=== PATIENT | female | born 1980 | race Caucasian/White ===

== ENCOUNTER 2016-12-05 09:22 | Emergency (ER) | payer SELFPAY ==
[2016-12-05] MEDS ORDERED: DEXAMETHASONE 4 MG TABLET PO ONE (10:44)
[2016-12-05] MEDS ORDERED: IPRATROPIUM/ALBUTEROL 0.5-2.5 MG/3 ML AMPUL NEB ONE (10:44)
[2016-12-05] MEDS ORDERED: IBUPROFEN 800 MG TABLET PO ONE (10:45)
[2016-12-05] MEDS ORDERED: PSEUDOEPHEDRINE HCL 30 MG TABLET PO ONE (10:45)
--- NOTE | 2016-12-05 10:46 | ER Document Report ---
HPI - HPI Patient complains to provider of: Sore throat Onset: Other - 3 days Onset/Duration: Persistent Quality of pain: Achy Pain Level: 5 Context: Patient presents complaining of sore throat for the past 3 days. Patient has had cough with upper respiratory symptoms as well. Patient states that she did have some dizziness earlier today but states those symptoms have resolved. Patient denies any fever. Associated Symptoms: Nonproductive cough, Rhinnorhea, Sinus pain/drainage, Sore throat. denies: Earache, Fever Exacerbated by: Denies Relieved by: Denies Similar symptoms previously: Yes Recently seen / treated by doctor: No - ROS ROS below otherwise negative: Yes Systems Reviewed and Negative: Yes All other systems reviewed and negative - CONSTITUTIONAL Constitutional: REPORTS: Chills. DENIES: Fever - EENT EENT: REPORTS: Sore Throat, Nasal Drainage-Clear, Congestion - RESPIRATORY Respiratory: REPORTS: Coughing. 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 IN LAST 30 DAYS: No - HEENT HEENT: Atraumatic, Normocephalic, Pharyngeal Tenderness, Pharyngeal Erythema. negative: Pharyngeal Exudate, Tympanic Membrane Red, Tympanic Membrane Bulging Notes: left serous effusion - NECK Neck: Normal Inspection, Supple - RESPIRATORY Respiratory: No Respiratory Distress, Wheezing - faint scattered O2 Sat by Pulse Oximetry: 96 - CARDIOVASCULAR Cardiovascular: Regular Rate, Regular Rhythm, No Murmur - BACK Back: Normal Inspection - MUSCULOSKELETAL/EXTREMETIES Musculoskeletal/Extremeties: MAEW - NEURO Level of Consciousness: Awake, Alert, Appropriate Motor/Sensory: No Motor Deficit - DERM Integumentary: Warm, Dry, No Rash Course - Re-evaluation Re-evalutation: 12/05/16 Patient with increased air movement, faint scattered wheeze noted. - Vital Signs Vital signs: Temp Pulse Resp BP Pulse Ox 98.4 F 109 H 20 130/77 H 96 12/05/16 09:26 12/05/16 09:26 12/05/16 09:26 12/05/16 09:26 12/05/16 09:26 - Laboratory Laboratory results interpreted by me: 12/05/16 11:17 Labs- Entire Visit 12/05/16 09:47 Group A Strep Rapid NEGATIVE Discharge - Discharge Clinical Impression: Upper respiratory infection, acute, Sore throat, Wheezing Condition: Stable Disposition: HOME, SELF-CARE Instructions: Sore Throat ([facility]) Additional Instructions: Return immediately for any new or worsening symptoms Followup with your primary care provider, call tomorrow to make a followup appointment UPPER RESPIRATORY ILLNESS: You have a viral infection of the respiratory passages -- a "cold." This common infection causes nasal congestion, drainage, and often sore throat and cough. It is highly contagious. The disease usually lasts about 10 to 14 days. There is no "cure" for the viral infection -- it must run its course. If there is a complication, such as bacterial infection in the nose, sinuses, middle ear, or bronchial tubes, antibiotics may be required. The antibiotics won't affect the virus. Drink plenty of fluids. A humidifier may help. An expectorant medication or decongestant may make you more comfortable. Use acetaminophen or ibuprofen for fever or aches. See the doctor if fever persists over two days, if there is any significant worsening of your symptoms, or if you simply fail to improve as expected. BRONCHOSPASM: You have tightness in the bronchial tubes, called bronchospasm. This often occurs with bronchial infections. Allergies, inhaled chemicals, and polluted or cold air can also provoke bronchospasm. It's more likely in patients with asthma in the family. Emergency treatment of bronchospasm may include adrenaline shots or bronchodilator aerosol. You may feel lightheaded and have a rapid pulse for an hour or two. Rest and get plenty of fluids. At home, we'll treat you with a bronchodilator inhaler. Antibiotics and corticosteroids may be required for some patients. Until you recover, avoid chemical fumes, dusts, pollens, and exercising in very cold or dry air. If you smoke, stop now!! If you develop a fever, increased wheezing, chest pain, or severe shortness of breath, you should contact the doctor immediately. DECONGESTANT MEDICATION: A decongestant medicine has been prescribed. Often this medicine is combined in the same tablet with an antihistamine or expectorant. This type of medicine is helpful in treating a bad cold or sinus condition, as well as in treatment of the nasal congestion of hay fever. It is not of much benefit for lung infections. Decongestant medicines are related to stimulants. They can cause an increase in blood pressure and heart rate. Persons with heart disease and high blood pressure should not take decongestants without discussing this with the physician. If you develop palpitations, chest pain, headache, or tremors, stop the medicine and consult your physician. INHALED BRONCHODILATORS: You have received a treatment of and/or prescription for an inhaled bronchodilator -- a medication which stimulates the airways in the lung to dilate. This improves the flow of air in asthma, bronchitis, and emphysema. These medicines have some similarity to adrenaline, and can cause similar side effects: shakiness, racing heart, and a sense of nervousness. These side effects decrease with time. Contact your doctor if these side effects are severe. Do not over-use the medicine. Too-frequent use of the inhaler may make it ineffective. Call your doctor if the inhaler is not controlling your symptoms at the prescribed doses. STEROID MEDICATION: You have been given an injection of or oral medicine of the cortisone/ steroid class. This medication is used to control inflammation or allergy. Vj t is usually only given for a short period of time, until the acute process subsides. There are usually no side effects from short-term use of cortisone-like medications. Some persons feel an increased sense of well-being and are not sleepy at bedtime. Long-term use of cortisone medications is best avoided, unless required for a severe condition. If your condition does not remit, or relapses after the course of corticosteroid medication, you should consult your physician. USE OF ACETAMINOPHEN (Tylenol): Acetaminophen may be taken for pain relief or fever control. It's much safer than aspirin, offering a wider range of "safe" dosages. It is safe during . Some brand names are Tylenol, Panadol, Datril, Anacin 3, Tempra, and Liquiprin. Acetaminophen can be repeated every four hours. The following are maximum recommended dosages: >89 pounds or adults 650 mg to 900 mg Acetaminophen can be repeated every four hours. Maximum dose not to exceed 4000 mg a day. SMOKING: If you smoke, you should stop smoking. The tar and chemicals in cigarette smoke are harmful. Smoking has been shown to cause: emphysema chronic bronchitis lung cancer mouth and throat cancer stomach and pancreas cancer premature aging defects In addition, smoking increases ear and lung infections in children of smokers. FOLLOW-UP CARE: If you have been referred to a physician for follow-up care, call the physician s office for an appointment as you were instructed or within the next two days. If you experience worsening or a significant change in your symptoms, notify the physician immediately or return to the Emergency Department at any time for re-evaluation. Prescriptions: Albuterol Sulfate [Ventolin Hfa] 2 puff IH Q4HP PRN #17 gm PRN Reason: Guaifenesin/Pseudoephedrne HCl [Mucinex D ER Tablet] 1 each PO Q12 PRN #12 tab.er.12h PRN Reason: Naproxen [Naprosyn 250 Nmg Tablet] 1 tab PO BID #14 tablet Forms: Return to Work Referrals: [facility] [Provider Group] - Follow up as needed
[2016-12-05 11:35] VITALS: BP 121/83
== END 2016-12-05 11:35 | disposition home or self-care (01) ==
LOC: ER 09:22
DX: J02.9 Acute pharyngitis, unspecified (principal); R05 Cough; J34.89 Other specified disorders of nose and nasal sinuses; R68.83 Chills (without fever); R06.2 Wheezing; F17.200 Nicotine dependence, unspecified, uncomplicated
CPT/HCPCS: 94640; 99283; 87070; 87880; J7620

== ENCOUNTER 2019-11-13 12:55 | Day surgery (SDC) | payer OTHER ==
[2019-11-13] MEDS ORDERED: ONDANSETRON HCL INJ/PF 4 MG/2 ML SDV IV ONE (13:07)
[2019-11-13] MEDS ORDERED: MORPHINE SULFATE 10 MG/ML INJ IV ONE ×3 (13:07→15:44)
[2019-11-13] MEDS ORDERED: DIPH/PERTUSS(ACELL)/TETANUS VAC/PF 0.5 ML SYR (>=10YO) IM ONE (13:25)
--- NOTE | 2019-11-13 13:45 | RADIOLOGY REPORT (SQ) ---
EXAM DESCRIPTION: HAND RIGHT 3 VIEWS IMAGES COMPLETED DATE/TIME: 11/13/2019 1:36 pm REASON FOR STUDY: wes in hand COMPARISON: None. EXAM PARAMETERS: NUMBER OF VIEWS: Three views. TECHNIQUE: AP, lateral and oblique radiographic images acquired of the right hand. LIMITATIONS: None. FINDINGS: MINERALIZATION: Normal. BONES: No acute fracture or dislocation. No worrisome bone lesions. JOINTS: No effusions. SOFT TISSUES: Radiopaque foreign body lies between the 3rd and 4th digits consistent with clinical hi story of imbedded wse. OTHER: No other significant finding. IMPRESSION: Radiopaque foreign body lying between the 3rd and 4th digits at the metacarpal phalangea l junction. No underlying bony abnormalities. TECHNICAL DOCUMENTATION: JOB ID: [id number] 2010 [employer]- All Rights Reserved Reading location - IP/workstation name: [email or web address]
[2019-11-13] MEDS ORDERED: VANCOMYCIN HCL INJ 1000 MG VIAL IV ONE (13:49)
[2019-11-13] MEDS ORDERED: CLINDAMYCIN 900 MG/D5W RTU 900 MG/50 ML RTUPB IV ONE (13:49)
--- NOTE | 2019-11-13 13:52 | ER Document Report ---
ED General - General Chief Complaint: Hand Pain Stated Complaint: RIGHT HAND PAIN Time Seen by Provider: 11/13/19 13:03 Mode of Arrival: Ambulatory Information source: Patient TRAVEL OUTSIDE OF THE [place] IN LAST 30 DAYS: No - HPI Notes: Patient comes in complaining of right hand pain. Is severe. Sharp. It radiates up her right arm. Is worse with movement better with rest. She stated started just before arrival when she put her hand into a wes machine and the wes machine fired putting a wes through her hand. - Related Data Allergies/Adverse Reactions: Penicillins Allergy (Verified 12/05/16 09:26) rash Past Medical History - General Information source: Patient - Social History Smoking Status: Never Smoker Frequency of alcohol use: None Drug Abuse: None Family History: Reviewed & Not Pertinent Renal/ Medical History: Denies: Hx Peritoneal Dialysis Past Surgical History: Reports: Hx Section - Immunizations Hx Diphtheria, Pertussis, Tetanus Vaccination: Yes Review of Systems - Review of Systems Constitutional: denies: Chills, Fever Cardiovascular: denies: Chest pain, Palpitations Respiratory: denies: Cough, Short of breath -: Yes All other systems reviewed and negative Physical Exam - Vital signs Vitals: Temp Pulse Resp BP Pulse Ox 98.4 F 78 18 109/64 99 11/13/19 13:15 11/13/19 13:15 11/13/19 13:15 11/13/19 13:15 11/13/19 13:15 Interpretation: Normal - General General appearance: Appears well, Alert - HEENT Head: Normocephalic, Atraumatic Eyes: Normal Pupils: PERRL - Respiratory Respiratory status: No respiratory distress Chest status: Nontender Breath sounds: Normal Chest palpation: Normal - Cardiovascular Rhythm: Regular Heart sounds: Normal auscultation Murmur: No - Abdominal Inspection: Normal Distension: No distension Bowel sounds: Normal Tenderness: Nontender Organomegaly: No organomegaly - Back Back: Normal, Nontender - Extremities General upper extremity: Normal temperature, Other - Patient has an obvious button wes through the space between the third and fourth metacarpals. It is a through and through injury. She has limited range of motion of her right hand secondary to the pain. She does have good capillary refill to the third and fourth fingers. General lower extremity: Normal inspection, Nontender, Normal color, Normal ROM, Normal temperature, Normal weight bearing. No: Chantel's sign - Neurological Neuro grossly intact: Yes Cognition: Normal Orientation: AAOx4 [place] Coma Scale Eye Opening: Spontaneous [place] Coma Scale Verbal: Oriented [place]ago Coma Scale Motor: Obeys Commands Mago Coma Scale Total: 15 Speech: Normal Motor strength normal: LUE, RUE, LLE, RLE Sensory: Normal - Psychological Associated symptoms: Normal affect, Normal mood - Skin Skin Temperature: Warm Skin Moisture: Dry Skin Color: Normal Course - Re-evaluation Re-evalutation: 11/13/19 14:33 thru and thru injury to right hand - Vital Signs Vital signs: Temp Pulse Resp BP Pulse Ox 98.4 F 78 18 109/64 99 11/13/19 13:15 11/13/19 13:15 11/13/19 13:15 11/13/19 13:15 11/13/19 13:15 - Diagnostic Test Radiology reviewed: Image reviewed, Reports reviewed Discharge - Discharge Clinical Impression: Foreign body hand Qualifiers: Encounter type: initial encounter Laterality: right Qualified Code(s): S60.551A - Superficial foreign body of right hand, initial encounter Condition: Stable Disposition: SAME DAY SURGERY Admitting Provider: [facility] Admitted: OR
[2019-11-13] MEDS ORDERED: FENTANYL CITRATE INJ/PF 100 MCG/2 ML AMPUL ONE (16:54)
[2019-11-13] MEDS ORDERED: MIDAZOLAM 2 MG/2 ML INJ ONE (16:54)
[2019-11-13] MEDS ORDERED: LIDOCAINE 2% INJ-PF (20 MG/ML) 10 ML AMPUL ONE (16:54)
[2019-11-13] MEDS ORDERED: ONDANSETRON HCL INJ/PF 4 MG/2 ML SDV ONE (16:54)
[2019-11-13] MEDS ORDERED: PROPOFOL INJ 200 MG/20 ML VIAL IV ONE (16:55)
[2019-11-13] MEDS ORDERED: CEFAZOLIN INJ 1 GM VIAL ONE (17:06)
--- NOTE | 2019-11-13 17:15 | PDOC H&P ---
History of Present Illness Admission Date/PCP: 11/12/2019 Patient complains of: Severe right hand pain following work injury with vera machine History of Present Illness: ANTONIO LI is a 38 year old female who presented to the emergency department complaining of severe right hand pain. 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 She inadvertently fired a rivets between the middle and ring finger interspace. She is complaining of severe pain as well as decreased sensation. Past Medical History Medical History: None Past Surgical History Past Surgical History: Reports: Section Social History Smoking Status: Never Smoker Frequency of Alcohol Use: Rare Hx Recreational Drug Use: No Hx Prescription Drug Abuse: No - Advance Directive Resuscitation Status: Full Code Family History Family History: Reviewed & Not Pertinent Parental Family History Reviewed: Yes Children Family History Reviewed: No Sibling(s) Family History Reviewed.: No Medication/Allergy Home Medications: Ibuprofen [Motrin 800 Mg Tablet] 800 mg PO Q6H #20 tablet 03/29/12 Methocarbamol [Robaxin 500 Mg Tablet] 1,000 mg PO Q6 #30 tablet 03/29/12 Albuterol Sulfate [Ventolin Hfa] 2 puff IH Q4HP PRN #17 gm 12/05/16 Guaifenesin/Pseudoephedrne HCl [Mucinex D ER Tablet] 1 each PO Q12 PRN #12 tab.er.12h 12/05/16 Naproxen [Naprosyn 250 Nmg Tablet] 1 tab PO BID #14 tablet 12/05/16 Allergies/Adverse Reactions: Penicillins Allergy (Verified 12/05/16 09:26) rash Review of Systems ROS unobtainable: Other - As per HPI Physical Exam Vital Signs: Temp Pulse Resp BP Pulse Ox 98.0 F 96 18 115/70 100 11/13/19 16:21 11/13/19 16:21 11/13/19 16:21 11/13/19 16:21 11/13/19 16:21 Intake & Output 11/12/19 11/13/19 11/14/19 06:59 06:59 06:59 Intake Total 50 Balance 50 Weight 79.379 kg General appearance: PRESENT: no acute distress, well-developed, well-nourished Head exam: PRESENT: atraumatic, normocephalic Eye exam: PRESENT: EOMI, PERRLA Neck exam: ABSENT: carotid bruit, JVD, lymphadenopathy, thyromegaly Respiratory exam: PRESENT: clear to auscultation willy. ABSENT: rales, rhonchi, wheezes Cardiovascular exam: PRESENT: RRR. ABSENT: diastolic murmur, rubs, systolic murmur GI/Abdominal exam: PRESENT: normal bowel sounds, soft. ABSENT: distended, guarding, mass, organolmegaly, rebound, tenderness Rectal exam: PRESENT: deferred Musculoskeletal exam: PRESENT: other - Examination of the right hand: There is a vera between the middle and ring finger interspace. The Vera spans both the dorsal and volar aspect of the digit. Sensation is decreased on the ulnar aspect of the middle finger as well as the radial aspect of the ring finger. There is good capillary refill. Results Impressions: Hand X-Ray 11/13/19 13:07 IMPRESSION: Radiopaque foreign body lying between the 3rd and 4th digits at the metacarpal phalangeal junction. No underlying bony abnormalities. Assessment & Plan - Diagnosis (2) Foreign body hand Qualifiers: Encounter type: initial encounter Laterality: right Qualified Code(s): S60.551A - Superficial foreign body of right hand, initial encounter - Time Time Spent: 30 to 50 Minutes Anticipated Discharge Disposition: Home, Self Care Anticipated Discharge Timeframe: within 24 hours - Plan Summary Plan Summary: I have recommended removal of the foreign body as well as exploration of the digital nerve with repair as needed. Risk, benefits, and alternatives were discussed with the patient. An opportunity for questions was provided. All questions were answered to her satisfaction. In particular we discussed the risk of with anesthesia, the risk of infection, the risk of persistent numbness in the digital nerve distribution, and the possible need for additional surgical procedures. The patient expressed understanding and wishes to proceed.
[2019-11-13] MEDS ORDERED: ONDANSETRON HCL INJ/PF 4 MG/2 ML SDV IV PRN (17:33)
[2019-11-13] MEDS ORDERED: OXYCODONE-ACETAMINOPHEN 5-325 MG TABLET PO PRN ×2 (17:33)
[2019-11-13] MEDS ORDERED: DIPHENHYDRAMINE HCL 50 MG/ML VIAL IV PRN (17:33)
[2019-11-13] MEDS ORDERED: PROMETHAZINE HCL INJ 25 MG/1 ML VIAL IV PRN ×2 (17:33)
[2019-11-13] MEDS ORDERED: MEPERIDINE HCL/PF INJ 25 MG/1 ML DISP.SYRIN IV PRN (17:33)
[2019-11-13] MEDS ORDERED: FENTANYL CITRATE INJ/PF 100 MCG/2 ML AMPUL IV PRN ×3 (17:33)
[2019-11-13] MEDS ORDERED: BUPIVACAINE HCL 0.5 % INJ/PF 30 ML SDV ONE (17:47)
--- NOTE | 2019-11-13 18:04 | Operative Report ---
Operative Report DATE OF SURGERY: 11/13/19 PREOPERATIVE DIAGNOSIS: 1. Foreign body right hand. 2. 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 3. Digital nerve injury radial digital nerve to the ring finger POSTOPERATIVE DIAGNOSIS: 1. Foreign body right hand. 2. 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 3. Digital nerve injury radial digital nerve to the ring finger OPERATION: 1. Removal of foreign body right hand. 2. Neurolysis ulnar digital nerve to the middle finger. 3. 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 She inadvertently fired a wes into her hand in the interspace between the right middle and ring fingers. She presented complaining of severe pain and sensory disturbance. Description of procedure: Following the induction of a general anesthetic and administration of 1 g of vancomycin, the patient was positioned supine on the operating room table. All bony prominences were padded. The right upper extremity was sterilely prepped and draped in usual fashion. The arm was exsanguinated and a tourniquet inflated to 250 mmHg. The wes was prominent both on the dorsal and palmar aspects of the digit. Due to the sensory nerve injury and the need for exploration, a palmar incision was made both proximal and distal to the Wes. The Wes was then removed through the dorsal incision. Blunt dissection with tenotomy scissors was performed to identify both the proper digital nerve to the middle finger as well as the proper digital nerve to the ring finger. Both nerves had been crushed and were entrapped within compressed soft tissue. Individual neurolysis of both digital nerves was performed to allow free excursion of the nerves. The wound was then copiously irrigated with 500 cc of normal saline. The palmar wound was closed with 3-0 nylon suture. The dorsal wound was left open specifically to allow egress of any contamination. 20 cc of half percent Marcaine was injected for postoperative analgesia. A bulky sterile dressing was then applied. The patient tolerated procedure well without complications and was awakened and brought to recovery room in stable condition.
[2019-11-13 19:31] VITALS: BP 105/67
--- NOTE | 2019-11-17 13:06 | Discharge Summary ---
Discharge Summary (SDC) - Discharge Final Diagnosis: 1. Foreign body right hand 2. Digital nerve injury: Ulnar digital nerve long finger 3. Digital nerve injury: Radial digital nerve ring finger Date of Surgery: 11/13/19 Forms: ASU Anesthesia D/C Instruction, Discharge POC-Surgical Service Treatment or Instructions: REGULAR DIET CALL MD FOR A WORK NOTE IF NEEDED ELEVATE HAND FOR 24 HRS MAY REMOVE DRESSING AND BATH WITH SOAP AND WATER IN 5 DAYS WATCH FOR SIGNS OF INFECTION: FEVER OVER 101, FOUL SMELLING DRAINAGE, INCREASE IN PAIN START WITH IBUPROFEN AND THEN TAKE PERCOCET FOR BREAKTHROUGH PAIN Discharge Diet: As Tolerated Respiratory Treatments at Home: Deep Breathing/Coughing Discharge Activity: Activity As Tolerated, No Lifting Over 10 Pounds, No Lif ting/Push/Pulling Home Care Assistance: None Needed Report the Following to Your Physician Immediately: Shortness of Breath, Fever over 101 Degrees, Unusual Bleeding, Redness, Warmth, Drainage-Foul Smelling
== END 2019-11-13 19:30 | disposition home or self-care (01) ==
LOC: OROUT 12:55 → ASU 1 18:04
PROVIDERS: ATTEND Orthopaedic Surgery
DX: S64.492A Injury of digital nerve of right middle finger, initial encounter (principal); S64.494A Injury of digital nerve of right ring finger, initial encounter; S61.242A Puncture wound with foreign body of right middle finger without damage to nail, initial encounter; S61.244A Puncture wound with foreign body of right ring finger without damage to nail, initial encounter; W31.89XA Contact with other specified machinery, initial encounter; Y92.69 Other specified industrial and construction area as the place of occurrence of the external cause; Y99.0 Civilian activity done for income or pay; Z03.818 Encounter for observation for suspected exposure to other biological agents ruled out; Z23 Encounter for immunization; F17.210 Nicotine dependence, cigarettes, uncomplicated; Z88.0 Allergy status to penicillin
CPT/HCPCS: 96376; 99284; 90471; 96375; 96365; 96367; 87635; 73130; 90715; 99140; 01810; 10121; 64702 ×2; J2250; J3490 ×3; J3010; J2270; J2405; J2704; J3370; C9803; J0690